=== PATIENT | female | born 2005 | race Caucasian/White ===

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

== ENCOUNTER 2024-01-20 14:45 | Outpatient (CLI) | payer OTHER, SELFPAY ==
--- NOTE | ~2024-01-20 | US_ITS ---
EXAMINATION: US pelvic complete w TV INDICATION: Pelvic pain. History of UTI. Comparison:No prior studies for comparison. TECHNIQUE: Multiple transabdominal and endovaginal sonographic images of the pelvis performed. FINDINGS: The uterus measures 8.3 x 5.4 x 3.4 cm. The endometrial complex measures 1 mm. The right ovary measures 1.1 x 1.7 x 2.1 cm. There is normal Doppler signal. No significant ovarian m ass. The left ovary is not visualized. There is no free fluid in the pelvis. There are no abnormal masses seen on either side. IMPRESSION: 1. Unremarkable pelvic ultrasound. Reviewed, dictated and finalized at location B.
== END 2024-01-20 14:46 ==
PROVIDERS: PCP Family Medicine; Visit Provider Obstetrics & Gynecology
DX: R10.2 Pelvic and perineal pain (principal)
CPT/HCPCS: 76830; 76856

== ENCOUNTER 2024-03-24 11:19 | Emergency (ER) | payer OTHER, SELFPAY ==
--- NOTE | 2024-03-24 11:24 | ED.GENADULT ---
HPI - General Adult General Chief complaint: Upper Respiratory Infection Stated complaint: congestion and cough Time Seen by Provider: 03/24/24 11:24 Source: patient Mode of arrival: ambulatory Limitations: no limitations History of Present Illness HPI narrative: 18-year-old female patient presents to the [facility] with complaints of cold symptoms for the past 7-8 days. Patient does have history of asthma and frequent ear and sinus infections. Patient states she does take Zyrtec daily but has been taking Sudafed recently. Patient states she did take a COVID test when her symptoms 1st started and was negative. Patient states that symptoms have mostly resolved but continued to have a cough, congestion and some left ear pain. Related Data Home Medications Medication Instructions Recorded Confirmed albuterol sulfate 90 mcg/actuation 1 inh inhalation Q4H PRN Shortness 07/03/23 03/24/24 aerosol inhaler Of Breath Or Wheezing Allergies Allergy/AdvReac Type Severity Reaction Status Date / Time No Known Drug Allergies Allergy Unknown Unknown Verified 03/24/24 11:24 Review of Systems Review of Systems: CONSTITUTIONAL: Denies fever, chills, or sweats. EYES: Denies visual changes, redness, or discharge. ENT: Positive rhinorrhea, congestion, denies sore throat, positive left otalgia. CARDIOVASCULAR: Denies chest pain, palpitations, or edema. RESPIRATORY: positive cough denies dyspnea. GASTROINTESTINAL: Denies abdominal pain, nausea, vomiting, or diarrhea. GENITOURINARY: Denies dysuria or hematuria. SKIN: Denies rash or itching. MUSCULOSKELETAL: Denies back pain, joint pain, or myalgia. NEUROLOGIC: positive headache, denies numbness, or weakness. PSYCHIATRIC: Denies anxiety or depression. [facility] Past Medical History Medical History Acute appendicitis with localized peritonitis, without perforation or abscess Asthma control counseling Breast tenderness in female Patient new to facility Screening for diabetes mellitus Sexually active Surgical History Surgical History History of laparoscopic appendectomy 10/27/22 Hx of tonsillectomy Family History Family History Mother Irritable bowel Anxiety Father Asthma Grandparent Pancreatic cancer Sibling No problems noted. Social History Social History (Reviewed 03/24/24 @ 11:24 by TATA Escobar Smoking status: Never smoker Second hand tobacco smoke exposure: No Alcohol intake: never Substance use: never Substance use type: does not use Do You Feel Safe in your Home?: Yes Lack of Transportation: No Lack of Food: Never True Current Housing: I Have Housing Concerned About Future Housing: No Difficulty Paying Gas/Electric Bills: No Difficulty Paying for Meds: No Currently Unemployed: No Education: Grade School Difficulty w/ Childcare or Family Care: No Living arrangements: with family Occupation/Education: student Gender identity (if verbalized by the patient): Female Sexual Orientation (if Verbalized by the Patient): Straight or Heterosexual Spiritual care concerns: No Comments At the time of my signature I agree with nursing past medical history, surgical, social, and family history. There is no relevant family history pertinent to the presenting complaint. Exam Narrative: GENERAL: Well-appearing, well-nourished, and in no acute distress. HEAD: Normocephalic, atraumatic. EYES: PERRLA and EOMI. ENT: Nares clear, no rhinorrhea or epistaxis. Mucous membranes moist. posterior pharynx with no erythema, tonsillar enlargement, exudates or lesions present. The left TM does have some erythema present. NECK: Supple. No lymphadenopathy CHEST: Clear to auscultation. No respiratory distress. HEART: Regular rate and rhythm. No murmur heard. Normal peripheral pulses. ABDOMEN: Soft, nonten
[2024-03-24 11:32] VITALS: BP 103/62; PULSE 73; RESP 16; TEMP 36.9; O2SAT 98
== END 2024-03-24 11:44 | disposition home or self-care (01) ==
PROVIDERS: Emergency Provider Nurse Practitioner Family; PCP Family Medicine
DX: H66.92 Otitis media, unspecified, left ear (principal); J45.909 Unspecified asthma, uncomplicated
CPT/HCPCS: 99213; G0463

== ENCOUNTER 2025-01-16 15:49 | Outpatient (CLI) | payer OTHER, SELFPAY ==
--- OUTSIDE RECORDS SUMMARY | 2025-01-16 15:53 | XMS_ITS | Clinical Summary ---
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 Gender Identity Not on file Sexual Orientation Not on file Plan of Treatment Health Maintenance Due Date Last Done Comments Hepatitis C Virus (HCV) Screening 2004 Hepatitis B Immunization (3 of 3 - 3-dose series) 09/30/2005 08/05/2005, 2004 Meningococcal B Immunization (1 of 2 - Standard) 2020 SARS-COV-2 Immunization (2 - season) 2024 07/08/2021 Influenza Immunization (#1) 03/04/202504/03, 08/14/2019, 04/28/2018, Additional history exists Respiratory Syncytial Virus (RSV) Immunization (Adult) (1 - 1-dose 75+ series) 10/18/2079 Pneumococcal Immunization Combined Aged Out 10/25/2005, 06/17/2005, 05/06/2005, Additional history exists No longer eligible based on patient's age to complete this topic Hepatitis A Immunization Discontinued 04/14/2007, 10/2006 Measles Mumps Rubella (MMR) Immunization Discontinued 02/05/2010, 10/25/2005 Polio (IPV) Immunization Discontinued 010, 08/05/2005, 05/06/2005, Additional history exists Varicella Immunization Discontinued 02/05/2010, 2005 DTaP/Tdap/Td Immunization Discontinued 2015, 02/05/2010, 02/09/2006, Additional history exists Meningococcal Immunization (ACWY) Aged Out 03/24/2016 No longer eligible based on patient's age to complete this topic TdaP Immunization Completed 03/24/2016 Human Papillomavirus (HPV) Immunization Completed 08/02/2018, 05/06/2017 Rotavirus Immunization Aged Out No lo nger eligible based on patient's age to complete this topic
--- OUTSIDE RECORDS SUMMARY | 2025-01-16 15:53 | XMS_ITS | Clinical Summary ---
Author Organization [facility] Address [address] [place] [address] Care Team Providers Care Ammonia Refrigeration Technician Name Role Phone Cristina Taylor MD Primary Care Provider [phone] Source Comments [facility],non-owned Affiliates and Associated Physician Practices is amultiple site organization consisting of ambulatory clinics and hospital sitesin [place], [place], [place] and [place]. This disclosure is being madepursuant to the Care Everywhere program and may not contain all information available regarding this patient. 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 Gender Identity Not on file Sexual Orientation Not on file Plan of Treatment Health Maintenance Due Date Last Done Comments HIV SCREENING 10/18/2019 HPV VACCINE (1 - 3-dose series) 10/18/2019 CHLAMYDIA/GONORRHEA SCREENING 2020 MENINGOCOCCAL (Group B) VACC INE SHARED DECISION-MAKING (1 of 2 - Standard) 2020 HEPATITIS C SCREENING 10/13/2022 DTAP/TDAP/TD VACCINES (1 - Tdap) 10/18/2023 HEPATITIS B VACCINE (1 of 3 - 19+ 3-dose series) 10/18/2023 COVID-19 VACCINE (1 - 2023-2 5 season) 2024 DEPRESSION SCREENING 07/04/2024 INFLUENZA VACCINE (#1) 2025 ZOSTER VACCINE (1 of 2) 2054 HIB VACCINE Aged Out No longer eligi ble based on patient's age to complete this topic MENINGOCOCCAL GROUPS A/C/Y/W VACCINE Aged Out No longer eligible b ased on patient's age to complete this topic PNEUMOCOCCAL VACCINE Aged Out No long er eligible based on patient's age to complete this topic Insurance [facility] Care Teams Ammonia Refrigeration Technician Relationship Specialty Start Date End Date Cristina Taylor MD PCP - General Pediatrics 07/14/18
[2025-01-16 16:09] LABS: Hematocrit 41.1 % (37.0-47.0); Hemoglobin 13.6 g/dL (12.0-15.0); Immature Granulocyte Percent A 0.2 % (0-0.5); Lymphocytes Absolute Auto 2.51 K/mm3 (0.9-3.2); Mean Corpuscular HGB Conc 33.1 g/dl (32-36); Mean Corpuscular Hemoglobin 29.2 pg (26-34); Mean Corpuscular Volume 88.2 fl (80-100); Nucleated Red Blood Cells Absolute Auto 0.000 K/mm3 (0.0-0.012); Nucleated Red Blood Cells Perc 0.0 % (0.0-0.2); Platelet Count Result 261 k/mm3 (150-375); Red Blood Count 4.66 M/mm3 (4.2-5.4); White Blood Count 6.6 K/mm3 (4.5-10.0)
[2025-01-16 16:34] LABS: Anion Gap 8 mmol/L (4-12); Blood Urea Nitrogen 10 mg/dL (7-17); Calcium 9.5 mg/dL (8.4-10.2); Carbon Dioxide 26 mmol/L (22-30); Chloride 105 mmol/L (98-107); Estimated Glomerular Filt Rate > 60; Glucose 83 mg/dL (65-110); Potassium 4.2 mmol/L (3.4-5.0); Sodium 139 mmol/L (137-145)
[2025-01-16 16:35] LABS: Iron 177 ug/dL (37-170)
[2025-01-16 16:45] LABS: Percent Iron Saturation 42 % (20-50)
[2025-01-16 17:10] LABS: Thyroid Stimulating Hormone 1.140 uIU/mL (0.465-4.680)
[2025-01-16 17:29] LABS: Vitamin B12 278.0 pg/mL (239-931)
== END 2025-01-16 15:50 | disposition home or self-care (01) ==
LOC: ANHLAB 15:51
PROVIDERS: PCP Family Medicine; Visit Provider Physician Assistant Medical
DX: E55.9 Vitamin D deficiency, unspecified (principal); R53.83 Other fatigue; R42 Dizziness and giddiness; F41.8 Other specified anxiety disorders
CPT/HCPCS: 36415; 80048; 82306; 82607; 83540; 83550; 84443; 85025